=== PATIENT | female | born 1965 | race Caucasian/White ===

== ENCOUNTER 2019-01-29 08:27 | Emergency (ER) | payer BC ==
[2019-01-29 08:53] VITALS: BP 128/66
--- NOTE | 2019-01-29 09:06 | UC ---
Throat Pain/Nasal Horacio HPI - HPI Summary HPI Summary: Patient presents to urgent care reporting 6 days of progressive frontal sinus pressure postnasal drip and sore throat and laryngitis. Patient states with respiratory better but continues with drainage. Patient says when she coughs she brings up green thick secretions that she thinks are related to her sinus. Patient denies shortness of breath. No nausea or vomiting. Patient traveled to a wedding in [place] last weekend and her mother and other gas were also sick. Patient has been using Nasonex that is as well as Tylenol Sinus with short-term relief. No fevers but does report fatigues. Patient states she is not . Medications as entered in the EMR by triage is reviewed. - History of Current Complaint Chief Complaint: UCRespiratory Stated Complaint: SORE THROAT Time Seen by Provider: 01/29/19 08:55 Hx Obtained From: Patient Hx Last Menstrual Period: 14 mos ?: No Severity: Moderate Pain Intensity: 6 - Allergies/Home Medications Allergies/Adverse Reactions: Allergies Allergy/AdvReac Type Severity Reaction Status Date / Time Penicillins Allergy Unknown Verified 01/29/19 08:53 Reaction Details Home Medications: Home Medications Multivitamins/Minerals TAB* [Thera M Plus TAB*] 1 tab PO DAILY 01/29/19 [ History Confirmed 01/29/19] Tylenol Cold And Flu 2 tab PO SEE INSTRUCTIONS PRN 01/29/19 [History] Vitamin E CAP* 1 tab PO QAM 01/29/19 [History Confirmed 01/29/19] hydroCHLOROthiazide [Hydrochlorothiazide] 12.5 mg PO QAM 01/29/19 [History Confirmed 01/29/19] PMH/Surg Hx/FS Hx/Imm Hx Previously Healthy: Yes - Surgical History Surgical History: Yes Surgery Procedure, Year, and Place: hernia, torn muscle repair at age 16yrs - Family History Known Family History: Positive: Non-Contributory - Social History Occupation: Employed Full-time Lives: With Family Alcohol Use: None Substance Use Type: None Smoking Status (MU): Former Smoker When Did the Patient Quit Smoking/Using Tobacco: Review of Systems All Other Systems Reviewed And Are Negative: Yes Constitutional: Positive: Fatigue ENT: Positive: Sore Throat, Nasal Discharge, Sinus Congestion, Sinus Pain/ Tenderness Respiratory: Positive: Cough - Related to postnasal drip Is Patient Immunocompromised?: No Physical Exam - Summary Physical Exam Summary: Vital Signs Reviewed: Yes A+Ox3, no distress Eyes: Conjunctiva Clear, [place]. EOM intact and full ENT: Hearing grossly normal TM x 2 clear, turbinates inflammed + thick PND, mild max sinus pain L>R, + frontal sinus discomfort, mmoist, uvula midline, no exudate, no erythema, laryngitis Neck: Positive: Supple Respiratory: Positive: No respiratory distress, No accessory muscle use + CTA throughout no w/r Cardiovascular: RRR nl s1, s2 no m/r CBT <2 sec abd soft + BS nt/nd no guarding, no distension Musculoskeletal Exam: BILL[place] x 4 without difficulty Strength Intact, ROM Intact Neurological: Positive: Alert, + sensation throughout Psychological: Positive: Normal Response To examiner Skin: Positive: no rash, no ecchymosis Triage Information Reviewed: Yes Vital Signs: Initial Vital Signs Temp 98.9 F 01/29/19 08:43 Pulse 66 01/29/19 08:43 Resp 18 01/29/19 08:43 BP 128/66 01/29/19 08:43 Pulse Ox 100 01/29/19 08:43 Throat Pain/Nasal Course/Dx - Course Course Of Treatment: Patient presents to urgent care reporting 6 days of progressive facial pressure and nasal congestion postnasal drip and cough. Patient reports cough productive of green sputum that she feels is related to postnasal drip. Patient denies fevers or chills. Patient has used Nasonex and Tylenol sinus with mild relief. On exam vital signs are stable. Patient does have laryngitis. Patient with discomfort with palpation of her sinuses as well as mucous membranes are inflamed with postnasal drip. Discussed with patient labs. We'll start patient on antibiotics. Patient is allergic so he is taxi. Hydrate. Humidify the air where she sleeps that she has a coal stove in her first floor. Decongestant. Secretion precaution. Return precautions. Patient comfortable in agreement with plan. - Differential Dx/Diagnosis Provider Diagnosis: Rhinosinusitis, Acute rhinosinusitis Discharge ED - Sign-Out/Discharge Documenting (check all that apply): Patient Departure All imaging exams completed and their final reports reviewed: No Studies - Discharge Plan Condition: Stable Disposition: HOME Prescriptions: DOXYcycline CAP(*) [DOXYcycline 100MG CAP(*)] 100 mg PO BID #20 cap Mometasone Furoate [Nasonex] 17 gm NS DAILY #1 spray.pump Patient Education Materials: Laryngitis (ED), Rhinosinusitis (ED) Referrals: Nazario Reed MD [Primary Care Provider] - Additional Instructions: - Stay well hydrated. Drink plenty of non-alcoholic, non-caffinated beverages. - Alternate ibuprofen (Advil, Motrin) 600mg and Tylenol every 3 hours for pain or fever. Take with food. Do NOT take for more than 4-5 days. - These infections are spread by secretions - do NOT share eating or drinking utensils - clean items you share with other people such as cell phones, computer mouse, TV remote, computer tablets,etc. Once you have been antibiotics for 2 days, change your toothbrush and your pillowcase. - get plenty of restful sleep - humidify the air in the room where you sleep - boil water, run a hot steam shower, vaporizer, cups of water by heat register - okay to take over the counter decongestant and cough medication - use nasal spray as prescribed - take antibiotics as prescribed - contact your doctor or return with questions or concerns - Billing Disposition and Condition Condition: STABLE Disposition: Home
== END 2019-01-29 09:35 | disposition home or self-care (01) ==
LOC: UCCORT 08:27
DX: J01.90 Acute sinusitis, unspecified (principal); R05 Cough; J02.9 Acute pharyngitis, unspecified; Z88.0 Allergy status to penicillin; Z87.891 Personal history of nicotine dependence
CPT/HCPCS: 99202; G0463